=== PATIENT | male | born 1975 | race African-American/Black ===

== ENCOUNTER 2018-11-11 11:21 | Emergency (ER) | payer OTHER ==
[2018-11-11 11:35] VITALS: BP 173/82; PULSE 74; TEMP 97.9; BMI 38.6
--- NOTE | 2018-11-11 12:54 | PDOC ---
History of Present Illness - General Chief Complaint: Dialysis Shunt Problem Stated Complaint: CVC EXCHANGE Time Seen by Provider: 11/11/18 11:44 - History of Present Illness Initial Comments: Miky Garay Jr is a 43yo man with a PMH of HTN, HLD, DM, ESRD who presents to the ED because his dialysis center told him his catheter was "loose" and could not be used. Mr Garay was previously on PD but switched to HD about 10 weeks ago. He had a Rt chest dialylsis catheter placed which he has been using until his LUE AVF matures enough to use; there have been no complications or difficulties with the catheter. Mr Garay was seen for follow up in Dr Hamm's office last week. Today, Mr Garay went to dialysis and was told that his catheter could not be used because it was too loose, and his fistula was not ready for a full dialysis session (states the dialysis staff was "afraid to use 2 needles in it the first time.") He went to Dr Hamm's office and was told that he would need to come to the ED to see Dr Hamm as he is at the hospital today. Darlin Garay does not know whether the catheter has been pulled out since his last dialysis session. He does not believe that it feels significantly different, but he says that he does not take the dressing off to look at it at home. He has not noticed any redness, drainage, bleeding around the catheter and denies any recent fevers. Past History - Past Medical History Allergies/Adverse Reactions: Allergies Allergy/AdvReac Type Severity Reaction Status Date / Time No Known Allergies Allergy Verified 11/11/18 11:30 Cardiac Disorders: Yes COPD: No Diabetes: Yes Dialysis: Yes (MWF) HTN: Yes Hypercholesterolemia: Yes - Surgical History Cardiac Surgery: Yes (OPEN HEART, BYPASS) - Immunization History Immunization Up to Date: Yes - Suicide/Smoking/Psychosocial Hx Smoking History: Never smoked Hx Alcohol Use: No Drug/Substance Use Hx: No Review of Systems - Review of Systems Comments:: General: No fevers, no chills, no weight or appetite change, no malaise HEENT: No changes in vision, no changes in hearing, no congestion, no sore throat CV: No chest pain, no palpitations, no LE edema Pulm: No SOB, no cough, no wheezing GI: No nausea or vomiting, no change in bowel habits, no melena : No frequency, no urgency, no dysuria Musc: No back pain, no joint swelling, no recent injury Skin: No rash, no lesions, no erythema Endo: No excessive thirst, no heat/cold intolerance Heme: No unusual bruising or bleeding, no swollen glands Neuro: No syncope, no numbness/tingling, no focal weakness Vasc: No claudication Psych: No recent change in mood, no SI or HI *Physical Exam - Vital Signs Last Vital Signs Temp Pulse Resp BP Pulse Ox 97.9 F 74 18 173/82 H 100 11/11/18 11:31 11/11/18 11:31 11/11/18 11:31 11/11/18 11:31 11/11/18 11:31 - Physical Exam Comments: General: Comfortable, no acute distress HEENT: PERRL, EOMI, MMM, voice normal Cards: RRR Pulm: Comfortable on room air Chest: Right upper chest with dialysis catheter in place. Suture appears to have been ripped free, still attached to catheter but not skin. No drainage, no erythema, no edema, no bleeding, no tenderness surrounding. Ext: Atraumatic. LUE w/ AVF, palpable thrill. Skin: Normal color, no rashes or lesions Neuro: A&Ox3, CN grossly intact, normal speech, motor/sensory grossly intact and symmetric Psych: Mood appropriate to situation Medical Decision Making - Medical Decision Making 11/11/18 12:41 Miky Garay Jr is a 43yo man with a PMH of HTN, HLD, DM, ESRD who presents to the ED for evaluation of his dialysis catheter. He was told that the catheter was "loose" at his dialysis center and was referred to the ED by Dr Hamm' s office. Mr Garay does not feel that his catheter looks different than usual but he reports that it is generally only re-bandaged at dialysis, and he does not closely inspect it. - Mr Garay declines any labs or workup - Spoke to Dr Hamm. Is unavailable to personally evaluate Mr Garay due to scheduled surgeries, but recommending evaluation by one of the surgical PA's - Spoke with NOEMI Bernabe. Will come to evaluate catheter 11/11/18 12:54 - Spoke to NOEMI Yokr. Requesting that the stitched be placed in the ED - To be evaluated by Dr Huerta 11/11/18 13:19 - One stitch placed at bedside to anchor dialysis catheter w/ 2-0 nylon - Will discharge. Advised patient to call his dialysis center to see if his session can be completed today; should follow up with Dr Hamm within this week to recheck the catheter. Seen and discussed with Dr Huerta. Susanne Fournier PGY1 *DC/Admit/Observation/Transfer Diagnosis at time of Disposition: Peritoneal dialysis catheter in place - Discharge Dispostion Disposition: HOME Condition at time of disposition: Stable Decision to Admit order: No - Referrals Referrals: Anshu Hamm MD [Staff Physician] - - Patient Instructions Printed Discharge Instructions: DI for Tunneled Dialysis Catheter Placement Additional Instructions: Discharge Instructions: You were seen in the ED for evaluation of your dialysis catheter. A stitch was placed to hold the catheter in place. Please call your dialysis center directly to make sure you do not miss dialysis. Make an appointment to follow up with Dr Hamm within the next week. Seek immediate medical care if you have worsening problems with your catheter, miss dialysis sessions, or you have any other medical emergencies. - Post Discharge Activity
--- NOTE | 2018-11-11 13:24 | PDOC ---
Attending Attestation - Resident Resident Name: Susanne Fournier - ED Attending Attestation I have performed the following: I have examined & evaluated the patient, The case was reviewed & discussed with the resident, I agree w/resident's findings & plan, Exceptions are as noted - HPI HPI: 11/11/18 13:28 43-year-old male with past medical history of diabetes, cardiac history, hypertension, hyperlipidemia, end-stage renal disease on dialysis with the left upper extremity fistula and a right upper chest port sent in from dialysis center for slightly loose chest port. Patient reports that he is soon to receive dialysis to left upper family as it is short. However, today and noted at the dialysis center that the port on the right-sided chest was slightly loose. He did not dialyze it reported that the port has been successly used last week. Patient has no other complaints. - Physicial Exam PE: 11/11/18 13:28 GENERAL: Awake, alert, and fully oriented, in no acute distress HEAD: No signs of trauma EYES: sclera anicteric, conjunctiva clear ENT: Auricles normal inspection, hearing grossly normal, nares patent, Moist mucosa NECK: Normal ROM, supple, Chest: Port chest R side. No rash, erythema, or drainage. Slightly loose but otherwise in place. EXTREMITIES: Normal range of motion, no edema. No clubbing or cyanosis. No cords, erythema, or tenderness NEUROLOGICAL: Cranial nerves II through XII grossly intact. Normal speech, normal gait SKIN: Warm, Dry, normal turgor, no rashes or lesions noted. - Medical Decision Making 11/11/18 13:31 Vital Signs Temp Pulse Resp BP Pulse Ox 97.9 F 74 18 173/82 H 100 11/11/18 11:31 11/11/18 11:31 11/11/18 11:31 11/11/18 11:31 11/11/18 11:31 Patient had a 2-0 nylon figure of 8 suture placed at [facility] by Dr. Fournier, supervised by me. Pt will be discharged and he will go back to dialysis center.
== END 2018-11-11 13:36 | disposition home or self-care (01) ==
LOC: JER 11:21
DX: Z45.2 Encounter for adjustment and management of vascular access device (principal); I10 Essential (primary) hypertension; E78.5 Hyperlipidemia, unspecified; E11.22 Type 2 diabetes mellitus with diabetic chronic kidney disease; I12.0 Hypertensive chronic kidney disease with stage 5 chronic kidney disease or end stage renal disease; N18.6 End stage renal disease; Z99.2 Dependence on renal dialysis
CPT/HCPCS: 99281-25